=== PATIENT | female | born 1970 | race Hispanic/Latino ===

== ENCOUNTER 2020-06-27 13:19 | Emergency (ER) | payer SELFPAY ==
[2020-06-27] MEDS ORDERED: NA CHLORIDE 0.9% 1,000 ML ONE (14:07)
[2020-06-27 14:36] LABS: Basophils % 0.9 % (0-1.3); Hematocrit 41.9 % (36.0-45.0); Lymphocytes % 23.8 % (15.3-44.8); MPV 8.8 fL (7.6-11.3); RBC Red Blood Cell Count 4.76 M/uL (3.86-4.86)
[2020-06-27] MEDS ORDERED: ONDANSETRON 4 MG/2 ML VIAL ONE (14:44)
[2020-06-27] MEDS ORDERED: KETOROLAC 30 MG/ML INJ ONE (14:45)
[2020-06-27 14:49] LABS: Albumin 3.4 g/dL (3.4-5.0); Bilirubin Total 0.7 mg/dL (0.2-1.0); Potassium 3.7 mmol/L (3.5-5.1); Protein, Total 7.6 g/dL (6.4-8.2)
--- NOTE | 2020-06-28 07:24 | EDPHYS ---
Physician Documentation [facility] Name: Miriam Loja Age: 49 yrs Sex: Female : 1970 Arrival Date: 06/27/2020 Time: 13:21 Bed 20 Private MD: ED Physician William Stevenson HPI: 06/27 14:01 This 49 yrs old Female presents to ER via Ambulatory with complaints of Covid pm1 Symptoms. 14:01 The patient or guardian reports cough, with no sputum, body aches, fever, and loss of pm1 sense of smell. 14:01 Onset: The symptoms/episode began/occurred 5 day(s) ago. Severity of symptoms: in the pm1 emergency department the symptoms are unchanged. Modifying factors: The symptoms are alleviated by nothing, the symptoms are aggravated by nothing. Associated signs and symptoms: Pertinent positives: nausea, Pertinent negatives: chest pain, diarrhea, sore throat, vomiting, shortness of breath. The patient has not experienced similar symptoms in the past. The patient has not recently seen a physician. 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 - Social history:: Smoking status: Patient denies any tobacco usage or history of. Patient/guardian denies using alcohol, street drugs, tobacco products. ROS: 14:01 ENT: Negative for injury, pain, and discharge, Neck: Negative for injury, pain, and pm1 swelling, Cardiovascular: Negative for chest pain, palpitations, and edema. 14:01 Back: Negative for injury and pain, : Negative for injury, bleeding, discharge, and swelling, MS/Extremity: Negative for injury and deformity, Skin: Negative for injury, rash, and discoloration, Neuro: Negative for headache, weakness, numbness, tingling, and seizure. 14:01 Constitutional: Positive for body aches, fever, decreased appetite. 14:01 Respiratory: Positive for cough, Negative for shortness of breath, sputum production. 14:01 Abdomen/GI: Positive for nausea, Negative for abdominal pain, vomiting, diarrhea, constipation. Exam: 14:01 Constitutional: This is a well developed, well nourished patient who is awake, alert, pm1 and in no acute distress. Head/Face: Normocephalic, atraumatic. ENT: Nares patent. No nasal discharge, no septal abnormalities noted. Tympanic membranes are normal and external auditory canals are clear. Oropharynx with no redness, swelling, or masses, exudates, or evidence of obstruction, uvula midline. Mucous membranes moist. Neck: Trachea midline, no thyromegaly or masses palpated, and no cervical lymphadenopathy. Supple, full range of motion without nuchal rigidity, or vertebral point tenderness. No Meningismus. 14:01 Back: No spinal tenderness. No costovertebral tenderness. Full range of motion. Skin: Warm, dry with normal turgor. Normal color with no rashes, no lesions, and no evidence of cellulitis. MS/ Extremity: Pulses equal, no cyanosis. Neurovascular intact. Full, normal range of motion. 14:01 Cardiovascular: Exam negative for acute changes, Rate: normal, Rhythm: regular, Pulses: no pulse deficits are appreciated. 14:01 Respiratory: Exam negative for acute changes, respiratory distress, shortness of breath. 14:01 Abdomen/GI: Exam negative for acute changes, Inspection: abdomen appears normal, Palpation: abdomen is soft and non-tender, mass, rebound tenderness. 14:01 Neuro: Exam negative for acute changes, Orientation: is normal, Mentation: is normal, Motor: is normal, moves all fours. Vital Signs: 13:28 BP 106 / 74; Pulse 91; Resp 18; Temp 100.0; Pulse Ox 97% ; Pain 9/10; ll1 14:27 BP 102 / 63; Pulse 84; Resp 18; Pulse Ox 97% on R/A; Pain 7/10; ks7 14:45 BP 92 / 65; Pulse 82; Resp 18; Temp 99.7(O); Pulse Ox 98% on R/A; Pain 7/10; ks7 15:59 BP 96 / 60; Pulse 79; Resp 18; Pulse Ox 98% on R/A; Pain 0/10; ks7 16:31 BP 107 / 67; Pulse 80; Resp 18; Temp 98.7(O); Pulse Ox 99% on R/A; Pain 0/10; ks7 MDM: 13:48 Patient medically screened. pm1 16:19 Data reviewed: vital signs. Data interpreted: Pulse oximetry: on room air is 98 %. pm1 Interpretation: normal. Counseling: I had a detailed discussion with the patient and/or guardian regarding: the historical points, exam findings, and any diagnostic results supporting the discharge/admit diagnosis, lab results, the need for outpatient follow up, to return to the emergency department if symptoms worsen or persist or if there are any questions or concerns that arise at home. 06/27 14:01 Order name: Droplet/Contact Precautions; Complete Time: 14:26 pm1 06/27 14:01 Order name: Labs collected and sent; Complete Time: 14: pm1 06/27 14:01 Order name: O2 Per Protocol; Complete Time: 14: pm1 06/27 14: Order name: Urine Dipstick-Ancillary (obtain specimen); Complete Time: 15: pm1 06/27 14:01 Order name: Urine Test (obtain specimen); Complete Time: 15:01 pm1 Administered Medications: 14:26 Drug: NS 0.9% 1000 ml Route: IV; Rate: 1000 ml; Site: right antecubital; ks7 14:46 Drug: Zofran (Ondansetron) 4 mg Route: IVP; Site: right antecubital; ks7 14:46 Drug: TORadol 30 mg Route: IVP; Site: right antecubital; ks7 Disposition: 17:05 Co-signature as Attending Physician, William Stevenson MD. rn Disposition: 06/27/20 16:20 Discharged to Home. Impression: Acute upper respiratory infection, unspecified. - Condition is Stable. - Discharge Instructions: Upper Respiratory Infection, Adult, COVID-19. - Prescriptions for Tessalon Perles 100 mg Oral Capsule - take 1 capsule by ORAL route every 8 hours As needed; 15 capsule. Zofran 4 mg Oral Tablet - take 1 tablet by ORAL route every 12 hours As needed; 20 tablet. - Medication Reconciliation Form, Thank You Letter, Antibiotic Education, Prescription Opioid Use form. - Follow up: Emergency Department; When: As needed; Reason: Worsening of condition. Follow up: Private Physician; When: 2 - 3 days; Reason: Recheck today's complaints, Continuance of care, Re-evaluation by your physician. - Problem is new. - Symptoms have improved. Signatures: William Stevenson MD MD rn Marinas, Patrick, NP BELT SEWER pm1 Ankush Monk, RN RN ll1 Lucía Jimenez RN RN ks7 Corrections: (The following items were deleted from the chart) 16:19 14:01 Document PUI# ordered. pm1 ss 16:19 14:01 Notify Health Dept [phone]/ ordered. pm1 ss 16:32 16:20 06/27/2020 16:20 Discharged to Home. Impression: Acute upper respiratory ks7 infection, unspecified. Condition is Stable. Forms are Medication Reconciliation Form, Thank You Letter, Antibiotic Education, Prescription Opioid Use. Follow up: Emergency Department; When: As needed; Reason: Worsening of condition. Follow up: Private Physician; When: 2 - 3 days; Reason: Recheck today's complaints, Continuance of care, Re-evaluation by your physician. Problem is new. Symptoms have improved. pm1 16:48 16:46 The patient or guardian reports cough, with no sputum, body aches, fever, and pm1 loss of sense of smell, pm1
--- NOTE | 2020-06-28 07:25 | ER ---
Nurse's Notes [facility] Name: Miriam Loja Age: 49 yrs Sex: Female : 1970 Arrival Date: 06/27/2020 Time: 13:21 Bed 20 Private MD: Diagnosis: Acute upper respiratory infection, unspecified Presentation: 06/27 13:28 Chief complaint: Patient states: Slight cough, fever, body aches, no appetite for 5 ll1 days. Coronavirus screen: Client denies travel out of the [place] in the last 14 days. chills, fatigue, fever, muscle pain, nausea, Client presents with at least one sign or symptom that may indicate coronavirus-19. Standard/surgical mask placed on the client. Ebola Screen: Patient denies travel to an Ebola-affected area in the 21 days before illness onset. Initial Sepsis Screen: Does the patient meet any 2 criteria? No. Patient's initial sepsis screen is negative. Risk Assessment: Do you want to hurt yourself or someone else? Patient reports no desire to harm self or others. Onset of symptoms was June 22, 2020. 13:28 Method Of Arrival: Ambulatory ll1 13:28 Acuity: SUSAN 3 ll1 13:42 Initial Sepsis Screen: Does the patient meet any 2 criteria? Does the patient have a ks7 suspected source of infection? No. Patient's initial sepsis screen is negative. 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 - Social history:: Smoking status: Patient denies any tobacco usage or history of. Patient/guardian denies using alcohol, street drugs, tobacco products. Screenin:27 Abuse screen: Denies threats or abuse. Denies injuries from another. Nutritional ks7 screening: No deficits noted. Tuberculosis screening: No symptoms or risk factors identified. Fall Risk None identified. Assessment: 14:27 General: Appears in no apparent distress. uncomfortable, Behavior is calm, cooperative. ks7 Pain: Complains of pain in generalized body aches Pain currently is 7 out of 10 on a pain scale. Quality of pain is described as aching, Pain began 2-3 days ago. Is continuous. Respiratory: No deficits noted. GI: Reports nausea. Vital Signs: 13:28 BP 106 / 74; Pulse 91; Resp 18; Temp 100.0; Pulse Ox 97% ; Pain 9/10; ll1 14:27 BP 102 / 63; Pulse 84; Resp 18; Pulse Ox 97% on R/A; Pain 7/10; ks7 14:45 BP 92 / 65; Pulse 82; Resp 18; Temp 99.7(O); Pulse Ox 98% on R/A; Pain 7/10; ks7 15:59 BP 96 / 60; Pulse 79; Resp 18; Pulse Ox 98% on R/A; Pain 0/10; ks7 16:31 BP 107 / 67; Pulse 80; Resp 18; Temp 98.7(O); Pulse Ox 99% on R/A; Pain 0/10; ks7 ED Course: 13:21 Patient arrived in ED. ds1 13:29 Triage completed. ll1 13:30 Arm band placed on Patient placed in an exam room, on a stretcher. ll1 13:32 Lucía Jimenez, ESAU is Primary Nurse. ks7 13:45 Ki Gordon NP is PHCP. pm1 13:45 William Stevenson MD is Attending Physician. pm1 14:27 Resting quietly. ks7 14:27 Patient has correct armband on for positive identification. Bed in low position. Call ks7 light in reach. Side rails up X2. 14:27 No provider procedures requiring assistance completed. Inserted saline lock: 20 gauge ks7 in right antecubital area, using aseptic technique. Blood collected. 15:01 No apparent distress. pt ambulated to bathroom independently. urine collected. ks7 16:31 IV discontinued, intact, bleeding controlled, No redness/swelling at site. Pressure ks7 dressing applied. Administered Medications: 14:26 Drug: NS 0.9% 1000 ml Route: IV; Rate: 1000 ml; Site: right antecubital; ks7 14:46 Drug: Zofran (Ondansetron) 4 mg Route: IVP; Site: right antecubital; ks7 14:46 Drug: TORadol 30 mg Route: IVP; Site: right antecubital; ks7 Outcome: 16:20 Discharge ordered by MD. pm1 16:31 Discharged to home ambulatory. ks7 16:31 Condition: good 16:31 Discharge instructions given to patient, using video team member done by PROFESSOR OF RELIGIOUS STUDIES Instructed on discharge instructions, follow up and referral plans. medication usage, Demonstrated understanding of instructions, follow-up care, medications, Prescriptions given X 2. 16:32 Patient left the ED. ks7 Addendum: 06/29/2020 14:01 Addendum: COVID-19 Result: Positive result giiven to ED physician to notify pt. i w Physician attempted to contact pt. Physician left voice mail for pt to call the ED back. Other: Dr. Grover attempted to notify pt with ESAU Richards translating. 06/30/2020 18:00 Addendum: COVID-19 Result: Positive result giiven to ED physician to notify pt. i w Physician attempted to contact pt. Physician left voice mail for pt to call the ED back. 07/03/2020 08:32 Addendum: COVID-19 Result: Positive result giiven to ED physician to notify pt. h b Physician: Indira King MD Physician was able to contact pt and pt was notified of positive COVID-19 swab result. Physician answered pt questions. Signatures: Allison Hull ds1 Jailyn Momin, Ki Alberts RN, NP PROFESSOR OF RELIGIOUS STUDIES pm1 Vera Shin RN RN Ankush Monk RN RN ll1 Lucía Jimenez RN RN ks7 Corrections: (The following items were deleted from the chart) 06/27 15:01 14:45 BP 92 / 65; Pulse 82bpm; Resp 18bpm; Pulse Ox 98% RA; Pain 05/27; ks7 ks7
[2020-06-28 08:07] VITALS: BP 107/67; TEMP 98.7; O2SAT 99
== END 2020-06-27 16:32 | disposition home or self-care (01) ==
LOC: ER 13:19
DX: U07.1 COVID-19 (principal); J06.9 Acute upper respiratory infection, unspecified; I10 Essential (primary) hypertension
CPT/HCPCS: 36415; 80053; 85025; 87070; 87081; 87804; 96374; 96375; 99284; J2405; J7030; U0002